=== PATIENT | male | born 1935 | race Caucasian/White ===

== ENCOUNTER 2020-02-04 16:00 | Inpatient (IN) | payer MEDICARE ==
[2020-02-05 06:16] LABS: ALT (SGPT) 8 U/L (8-55); AST (SGOT) 18 U/L (5-34); Albumin 3.7 g/dL (3.4-4.8); Alkaline Phosphatase 39 U/L (40-110); Anion Gap 17 mmol/L (10-20); BUN (Urea Nitrogen) 21 mg/dL (8.4-25.7); Bilirubin, Total 0.7 mg/dL (0.2-1.2); Calc. Creatinine Clearance 48 mL/min (70-130); Calcium 8.9 mg/dL (7.8-10.44); Carbon Dioxide 21 mmol/L (23-31); Chloride 104 mmol/L (98-107); Estimated GFR-MDRD 49; Globulin 2.7 g/dL (2.4-3.5); Glucose 115 mg/dL (83-110); Potassium 3.8 mmol/L (3.5-5.1); Protein, Total 6.4 g/dL (5.8-8.1); Sodium 138 mmol/L (136-145)
[2020-02-05 06:41] LABS: Hemoglobin 13.8 g/dL (14.0-18.0); Mean Corpuscular HGB CONC 32.5 g/dL (32.0-36.0); Mean Corpuscular Hemoglobin 31.1 pg (27.0-31.0); Mean Corpuscular Volume 95.6 fL (78.0-98.0); Mean Platelet Volume 6.6 fL (7.4-10.4); Platelet Count 194 thou/uL (130-400); RBC Distribution Width 11.9 % (11.5-14.5); Red Blood Cell (RBC) Count 4.44 mill/uL (4.70-6.10); White Blood Cell (WBC) Count 15.8 thou/uL (4.8-10.8)
[2020-02-05 06:42] LABS: Band 2 % (5-11); Lymphocytes 38 % (21-51); MDiff Complete? YES; Monocytes 5 % (0-10); Neutrophil 51 % (42-75); Platelet Morphology Comment Appears Adequate; Reactive Lymphocytes 3 % (0-10)
[2020-02-05] MEDS: Hydrochlorothiazide 25 MG TAB PO SCH (09:13)
[2020-02-05] MEDS: HYDROcodone/Acetaminophen 10/325 mg Tablet PO PRN ×3 (09:13→20:00)
[2020-02-05] MEDS: Potassium Chloride 10 MEQ TAB PO SCH (09:14)
[2020-02-05] MEDS: Lisinopril 20 MG TAB PO SCH (09:14)
[2020-02-05] MEDS: Amlodipine 5 MG TAB PO SCH (09:14)
[2020-02-05] MEDS: Aspirin 81 mg Enteric Coated Tablet PO SCH (09:14)
[2020-02-05] MEDS: Cholecalciferol 1,000 UNITS (25 MCG) TAB PO SCH (09:14)
[2020-02-05] MEDS: Cyanocobalamin (Vitamin B-12) 1,000 MCG TAB PO SCH (09:14)
[2020-02-05] MEDS: Clopidogrel Bisulfate 75 MG TAB PO SCH (09:14)
[2020-02-05] MEDS ORDERED: Bisacodyl 10 MG SUPP PR PRN (09:51)
--- NOTE | 2020-02-05 10:20 | HP ---
CHIEF COMPLAINT: Status post elective left total knee arthroplasty for physical therapy. BRIEF HISTORY: This is a very pleasant 84-year-old male, who apparently has had a progressive worsening pain in his left knee despite conservative measures and so underwent elective left total knee replacement. He was felt to be a good candidate for inpatient therapy before he goes home as he lives alone. The patient is up in his chair and denies any complaints other than constipation. He did have some hiccups last night, but it has since resolved. He states that his pain is at 7, but the medications are helping. Discussed with nursing and all questions answered. PAST MEDICAL HISTORY: Hypertension. PAST SURGICAL HISTORY: Left inguinal hernia repair. ALLERGIES: METRONIDAZOLE, CLONIDINE, AND MACROBID. FAMILY HISTORY: Noncontributory to current admission. PSYCHOSOCIAL HISTORY: Denies any tobacco or alcohol abuse. He is retired. He goes dancing every weekend. REVIEW OF SYSTEMS: GENERAL: Denies any fever, chills, fatigue or change in weight. CARDIOVASCULAR SYSTEM: Denies any chest pain, shortness of breath, palpitations, PND, orthopnea or pedal edema. RESPIRATORY SYSTEM: Denies any chronic cough, expectoration or pleuritic-type chest pain. GASTROINTESTINAL SYSTEM: Does complain of constipation. No nausea, vomiting, diarrhea, hematemesis, melena or hematochezia. GENITOURINARY SYSTEM: Denies any frequency, urgency, dysuria or hematuria. CENTRAL NERVOUS SYSTEM: Denies any focal numbness, weakness or fainting spells. HEENT: Denies any difficulty with speech, vision, hearing or swallowing. SKIN: Denies any rash. EXTREMITIES: Does notice left knee pain status post surgery. PHYSICAL EXAMINATION: GENERAL: This is a very pleasant 84-year-old male, who is up in his chair and denies any complaints. He is in no distress. He is alert, awake, and oriented x3. VITAL SIGNS: He is afebrile with a T-max of 99.9, pulse 98, respirations 20, oxygen saturation 94% on room air, and blood pressure 170/90. This was before his morning medications. HEENT: Normocephalic and atraumatic. Pupils are equally reacting to light and accommodation. No JVD, thyromegaly, cervical lymphadenopathy, or throat exudates. No carotid bruits. CARDIOVASCULAR SYSTEM: S1 and S2 plus. RESPIRATORY SYSTEM: Normal vesicular breath sounds. ABDOMEN: Soft and nontender. Bowel sounds heard in all quadrants. EXTREMITIES: Without cyanosis or clubbing. Trace edema, left leg. Left knee incision with dressing. Minimal warmth. No erythema. CENTRAL NERVOUS SYSTEM: Awake and responsive. Cranial nerves 2 through 12 intact. Grossly nonfocal. LABORATORY DATA: Laboratory values done this morning shows a white count of 15.8, it was 18,000 yesterday, H and H are 13.8 and 31.1. Sodium 138, potassium 3.8, BUN and creatinine of 21 and 1.4. Orthopedic did state that it is very common for leukocytosis postop, not a sign of infection and they just want us to monitor her. IMPRESSION: 1. Osteoarthritis, status post left total knee arthroplasty. 2. Hypertension. 3. Constipation. PLAN: 1. Continue current medications. 2. Low-sodium diet. 3. Monitor blood pressure and adjust medications as needed. 4. DVT prophylaxis per Orthopedics recommendations. 5. Orthopedic precautions and incision care. 6. Dulcolax suppository b.i.d. p.r.n. 7. Daily MiraLAX. 8. PT/OT eval and treat. 9. Monitor for any other signs or symptoms of infection. 10. Decubitus precautions and stress ulcer prophylaxis. 11. Discussed with the patient and nursing in detail and all questions answered. Job ID: [id number]
[2020-02-06] MEDS: Potassium Chloride 10 MEQ TAB PO SCH (08:46)
[2020-02-06] MEDS: Clopidogrel Bisulfate 75 MG TAB PO SCH (08:47)
[2020-02-06] MEDS: Cyanocobalamin (Vitamin B-12) 1,000 MCG TAB PO SCH (08:47)
[2020-02-06] MEDS: Aspirin 81 mg Enteric Coated Tablet PO SCH (08:47)
[2020-02-06] MEDS: Cholecalciferol 1,000 UNITS (25 MCG) TAB PO SCH (08:48)
[2020-02-06] MEDS: Amlodipine 5 MG TAB PO SCH (08:48)
[2020-02-06] MEDS: Lisinopril 20 MG TAB PO SCH (08:49)
[2020-02-06] MEDS: Hydrochlorothiazide 25 MG TAB PO SCH (08:49)
[2020-02-06] MEDS: Polyethylene Glycol 3350 17 GM Packet PO SCH (08:50)
[2020-02-06] MEDS: HYDROcodone/Acetaminophen 10/325 mg Tablet PO PRN ×3 (08:51→20:23)
--- NOTE | 2020-02-06 16:01 | PRG ---
DATE OF SERVICE: 02/06/2020 SUBJECTIVE: Mr. Vizcaino is up in his chair. He just finished his lunch. He apparently had a good bowel movement with a suppository yesterday. He states that it was black in color. He denies any history of stomach ulcers. He is not on any iron tablets. OBJECTIVE: VITAL SIGNS: He is afebrile, heart rate 96, respirations 18, oxygen saturation 95% on room air, blood pressure 151/83. CARDIOVASCULAR: S1-S2 plus. RESPIRATORY: Normal vesicular breath sounds. ABDOMEN: Soft and nontender. Bowel sounds heard in all quadrants. EXTREMITIES: Without cyanosis or clubbing. Knee incision with dressing. CENTRAL NERVOUS SYSTEM: Generalized weakness, otherwise nonfocal. IMPRESSION: 1. Osteoarthritis, status post left total knee replacement. 2. Hypertension. 3. Anemia, rule out gastrointestinal bleed. PLAN: 1. Check CBC in the morning. 2. Start stress ulcer prophylaxis with famotidine. 3. Check CBC in the morning. 4. Continue therapy. 5. Discussed with the patient in detail. All questions answered. 6. Bowel regimen. Job ID: [id number]
[2020-02-07] MEDS: HYDROcodone/Acetaminophen 10/325 mg Tablet PO PRN ×2 (08:07→13:41)
[2020-02-07] MEDS: Polyethylene Glycol 3350 17 GM Packet PO SCH (08:08)
[2020-02-07] MEDS: Aspirin 81 mg Enteric Coated Tablet PO SCH (08:08)
[2020-02-07] MEDS: Amlodipine 5 MG TAB PO SCH (08:09)
[2020-02-07] MEDS: Clopidogrel Bisulfate 75 MG TAB PO SCH (08:09)
[2020-02-07] MEDS: Lisinopril 20 MG TAB PO SCH (08:10)
[2020-02-07] MEDS: Potassium Chloride 10 MEQ TAB PO SCH (08:10)
[2020-02-07] MEDS: Cholecalciferol 1,000 UNITS (25 MCG) TAB PO SCH (08:10)
[2020-02-07] MEDS: Hydrochlorothiazide 25 MG TAB PO SCH (08:11)
[2020-02-07] MEDS: Cyanocobalamin (Vitamin B-12) 1,000 MCG TAB PO SCH (08:12)
--- NOTE | 2020-02-07 14:15 | PRG ---
DATE OF SERVICE: 02/07/2020 SUBJECTIVE: Mr. Vizcaino is doing well. He had another good bowel movement. No further hiccups. He is happy with his progress. Discussed with nursing. OBJECTIVE: VITAL SIGNS: He is afebrile, heart rate 90, respirations 18, oxygen saturation 94% on room air, and blood pressure 132/63. CARDIOVASCULAR SYSTEM: S1 and S2 plus. RESPIRATORY SYSTEM: Normal vesicular breath sounds. ABDOMEN: Soft, nontender. Bowel sounds heard in all quadrants. EXTREMITIES: Without cyanosis or clubbing. Left knee incision with dressing. Trace edema, otherwise nonfocal. IMPRESSION: 1. Osteoarthritis, status post left total knee replacement. 2. Constipation, which has resolved. 3. Hiccups, which have resolved. 4. Hypertension. 5. Anemia. PLAN: 1. Continue current medications. 2. Recheck CBC and BMP tomorrow. 3. Orthopedic precautions and incision care. 4. DVT prophylaxis with PlexiPulses. 5. Decubitus precautions. 6. Stress ulcer prophylaxis. 7. Continue therapy. Job ID: [id number]
[2020-02-08 05:43] LABS: Anion Gap 15 mmol/L (10-20); BUN (Urea Nitrogen) 39 mg/dL (8.4-25.7); Calc. Creatinine Clearance 42 mL/min (70-130); Calcium 8.9 mg/dL (7.8-10.44); Carbon Dioxide 23 mmol/L (23-31); Chloride 104 mmol/L (98-107); Estimated GFR-MDRD 41; Glucose 117 mg/dL (83-110); Hemoglobin 12.6 g/dL (14.0-18.0); Mean Corpuscular Hemoglobin 30.7 pg (27.0-31.0); Mean Corpuscular Volume 96.1 fL (78.0-98.0); Mean Platelet Volume 5.8 fL (7.4-10.4); Platelet Count 252 thou/uL (130-400); Potassium 4.5 mmol/L (3.5-5.1); RBC Distribution Width 11.7 % (11.5-14.5); Sodium 137 mmol/L (136-145); White Blood Cell (WBC) Count 14.3 thou/uL (4.8-10.8)
[2020-02-08 05:44] LABS: Band 10 % (5-11); Eosinophils 1 % (0-10); Large Platelets SLIGHT; Lymphocytes 39 % (21-51); MDiff Complete? YES; Metamyelocyte 2 % (0-0); Monocytes 2 % (0-10); Neutrophil 39 % (42-75); Platelet Morphology Comment Appears Adequate; RBC Morphology Normal; Reactive Lymphocytes 7 % (0-10)
[2020-02-08] MEDS: Aspirin 81 mg Enteric Coated Tablet PO SCH (08:58)
[2020-02-08] MEDS: Polyethylene Glycol 3350 17 GM Packet PO SCH (08:58)
[2020-02-08] MEDS: Amlodipine 5 MG TAB PO SCH (08:58)
[2020-02-08] MEDS: Lisinopril 20 MG TAB PO SCH (08:59)
[2020-02-08] MEDS: Cholecalciferol 1,000 UNITS (25 MCG) TAB PO SCH (08:59)
[2020-02-08] MEDS: Cyanocobalamin (Vitamin B-12) 1,000 MCG TAB PO SCH (08:59)
[2020-02-08] MEDS: Clopidogrel Bisulfate 75 MG TAB PO SCH (08:59)
[2020-02-08] MEDS: Potassium Chloride 10 MEQ TAB PO SCH (08:59)
[2020-02-08] MEDS: Hydrochlorothiazide 25 MG TAB PO SCH (09:00)
[2020-02-08] MEDS: HYDROcodone/Acetaminophen 10/325 mg Tablet PO PRN ×3 (09:00→20:37)
--- NOTE | 2020-02-08 13:32 | PRG ---
DATE OF SERVICE: 02/08/2020 SUBJECTIVE: Mr. Vizcaino is up in his chair. He is doing better. He denies any concerns except that he apparently is running out of his eyelid wash and needs some. He apparently has rosacea to his eyelids and he uses it every night. We will check with nursing to see if pharmacy can get some. OBJECTIVE: VITAL SIGNS: He is afebrile, heart rate 80, respirations 18, oxygen saturation 97% on room air, and blood pressure 132/63. CARDIOVASCULAR SYSTEM: S1 and S2 plus. RESPIRATORY SYSTEM: Normal vesicular breath sounds. ABDOMEN: Soft and nontender. Bowel sounds heard in all quadrants. EXTREMITIES: Left knee incision with dressing. Minimal effusion. No warmth or tenderness. IMPRESSION: 1. Osteoarthritis, status post left total knee replacement. 2. History of rosacea to eyelids, using eyewash wipes. 3. Hypertension. 4. Resolved constipation. PLAN: 1. Continue current medications. 2. Low-sodium diet. 3. Try to see if he can order his eyewash. 4. Physical therapy. 5. Orthopedic precautions and incision care. 6. DVT prophylaxis per Orthopedic recommendation. 7. Routine laboratory values. His white count is down to 14.3, H and H are 12.6 and 39.4, BUN and creatinine are 39 and 1.61. I did encourage him to drink plenty of fluids. We will hold his HCTZ. Job ID: [id number]
[2020-02-09] MEDS: Cholecalciferol 1,000 UNITS (25 MCG) TAB PO SCH (08:28)
[2020-02-09] MEDS: Lisinopril 20 MG TAB PO SCH (08:28)
[2020-02-09] MEDS: Polyethylene Glycol 3350 17 GM Packet PO SCH (08:28)
[2020-02-09] MEDS: Cyanocobalamin (Vitamin B-12) 1,000 MCG TAB PO SCH (08:29)
[2020-02-09] MEDS: Clopidogrel Bisulfate 75 MG TAB PO SCH (08:29)
[2020-02-09] MEDS: Amlodipine 5 MG TAB PO SCH (08:29)
[2020-02-09] MEDS: Aspirin 81 mg Enteric Coated Tablet PO SCH (08:29)
[2020-02-09] MEDS: HYDROcodone/Acetaminophen 10/325 mg Tablet PO PRN ×2 (12:41→21:38)
--- NOTE | 2020-02-09 13:36 | PRG ---
DATE OF SERVICE: 02/09/2020 SUBJECTIVE: Mr. Vizcaino is mobile on his wheelchair. Outside in the hallways in the room, he is able to ambulate with the help of his walker. He is happy with his progress. He is wondering when he might be discharged and I advised him that therapy has his case conference today. OBJECTIVE: VITAL SIGNS: He is afebrile, heart rate 82, respirations 18, oxygen saturation 95%, and blood pressure 139/70. CARDIOVASCULAR SYSTEM: S1 and S2 plus. RESPIRATORY SYSTEM: Normal vesicular breath sounds. ABDOMEN: Soft and nontender. Bowel sounds heard in all quadrants. EXTREMITIES: Without cyanosis or clubbing. Left knee incision with dressing. Mild edema to left leg. CENTRAL NERVOUS SYSTEM: deconditioning. IMPRESSION: 1. Osteoarthritis, status post left total knee replacement. 2. Hypertension. 3. Resolved constipation. 4. Worsening renal insufficiency, likely prerenal. He is off his and leukocytosis, likely reactive surgery. PLAN: 1. Continue current medications. 2. Hold HCTZ. 3. Recheck labs in the morning. 4. Continue therapy. 5. DVT prophylaxis per Orthopedic recommendations. 6. Decubitus precaution. 7. Incision care. Job ID: [id number]
[2020-02-10 06:21] LABS: Anion Gap 14 mmol/L (10-20); BUN (Urea Nitrogen) 45 mg/dL (8.4-25.7); Calc. Creatinine Clearance 42 mL/min (70-130); Calcium 8.6 mg/dL (7.8-10.44); Carbon Dioxide 23 mmol/L (23-31); Chloride 104 mmol/L (98-107); Estimated GFR-MDRD 41; Glucose 105 mg/dL (83-110); Potassium 4.3 mmol/L (3.5-5.1); Sodium 137 mmol/L (136-145)
[2020-02-10 06:29] LABS: Anisocytosis SLIGHT = 6-15 cells (100X) (0-5/hpf); Band 10 % (5-11); Eosinophils 6 % (0-10); Large Platelets SLIGHT; Lymphocytes 43 % (21-51); MDiff Complete? YES; Mean Corpuscular HGB CONC 32.5 g/dL (32.0-36.0); Mean Corpuscular Hemoglobin 31.3 pg (27.0-31.0); Mean Corpuscular Volume 96.3 fL (78.0-98.0); Mean Platelet Volume 5.6 fL (7.4-10.4); Monocytes 5 % (0-10); Neutrophil 30 % (42-75); Platelet Count 270 thou/uL (130-400); Platelet Morphology Comment Appears Adequate; RBC Distribution Width 11.6 % (11.5-14.5); Reactive Lymphocytes 6 % (0-10); Red Blood Cell (RBC) Count 3.84 mill/uL (4.70-6.10); White Blood Cell (WBC) Count 13.7 thou/uL (4.8-10.8)
[2020-02-10] MEDS: HYDROcodone/Acetaminophen 10/325 mg Tablet PO PRN ×2 (09:12→20:58)
[2020-02-10] MEDS: Polyethylene Glycol 3350 17 GM Packet PO SCH (09:12)
[2020-02-10] MEDS: Amlodipine 5 MG TAB PO SCH (09:13)
[2020-02-10] MEDS: Cholecalciferol 1,000 UNITS (25 MCG) TAB PO SCH (09:13)
[2020-02-10] MEDS: Aspirin 81 mg Enteric Coated Tablet PO SCH (09:13)
[2020-02-10] MEDS: Clopidogrel Bisulfate 75 MG TAB PO SCH (09:13)
[2020-02-10] MEDS: Lisinopril 20 MG TAB PO SCH (09:14)
[2020-02-10] MEDS: Cyanocobalamin (Vitamin B-12) 1,000 MCG TAB PO SCH (09:14)
--- NOTE | 2020-02-10 13:34 | PRG ---
DATE OF SERVICE: 02/10/2020 SUBJECTIVE: Mr. Vizcaino is doing well. Denies any complaints. He is noticing some ankle pain and he normally uses a topical pain relieving gel, which he would like to use. He is improving with therapy and reviewed their notes. Anticipated discharge date this Saturday or Saturday. OBJECTIVE: VITAL SIGNS: He is afebrile, heart rate 88, respirations 20, oxygen saturation 95% on room air, blood pressure 122/67. CARDIOVASCULAR: S1 and S2 plus. RESPIRATORY: Normal vesicular breath sounds. ABDOMEN: Soft, nontender. Bowel sounds heard in all quadrants. EXTREMITIES: Without cyanosis or clubbing. Left knee incision with dressing. Trace edema. IMPRESSION: 1. Osteoarthritis, status post left total knee replacement. 2. Hypertension. 3. Resolved constipation. 4. Rosacea blepharitis. PLAN: 1. Continue current medications. 2. Low-sodium diet. 3. Orthopedic precautions and incision care. 4. DVT prophylaxis per Orthopedic recommendations. 5. Eyelid care. 6. Therapy. 7. Discharge planning. Job ID: [id number]
[2020-02-11] MEDS: Aspirin 81 mg Enteric Coated Tablet PO SCH (08:54)
[2020-02-11] MEDS: Cholecalciferol 1,000 UNITS (25 MCG) TAB PO SCH (08:55)
[2020-02-11] MEDS: Cyanocobalamin (Vitamin B-12) 1,000 MCG TAB PO SCH (08:55)
[2020-02-11] MEDS: HYDROcodone/Acetaminophen 10/325 mg Tablet PO PRN ×2 (08:55→20:33)
[2020-02-11] MEDS: Amlodipine 5 MG TAB PO SCH (08:56)
[2020-02-11] MEDS: Clopidogrel Bisulfate 75 MG TAB PO SCH (08:56)
[2020-02-11] MEDS: Lisinopril 20 MG TAB PO SCH (08:56)
[2020-02-11] MEDS: Polyethylene Glycol 3350 17 GM Packet PO SCH (08:57)
--- NOTE | 2020-02-11 13:42 | PRG ---
DATE OF SERVICE: SUBJECTIVE: Mr. Vizcaino is doing well. He is up in his chair. He is happy with his progress. Informed him that he should be ready to go home early next week. The patient states that he does not want home health. He wants to do outpatient therapy at the [facility] in [place]. Informed therapy and therapy are fine with that as well. OBJECTIVE: VITAL SIGNS: He is afebrile, heart rate 84, respirations 18, oxygen saturation 96% on room air, blood pressure 146/71. CARDIOVASCULAR: S1 and S2 plus. RESPIRATORY: Normal vesicular breath sounds. ABDOMEN: Soft and nontender. Bowel sounds heard in all quadrants. EXTREMITIES: Without cyanosis, clubbing. Left knee incision with dressing. No erythema. CENTRAL NERVOUS SYSTEM: Grossly nonfocal. IMPRESSION: 1. Osteoarthritis, status post left total knee replacement. 2. Hypertension. 3. Resolved constipation. 4. Rosacea blepharitis. PLAN: 1. Continue current medications. 2. Heart healthy diet. 3. Orthopedic precautions and incision care. 4. DVT prophylaxis per Orthopedic recommendations. 5. Decubitus precautions. 6. Stress ulcer prophylaxis. 7. Routine laboratory values. 8. Discharge planning. 9. Continue therapy. Job ID: [id number]
[2020-02-12] MEDS: Polyethylene Glycol 3350 17 GM Packet PO SCH (08:50)
[2020-02-12] MEDS: Cyanocobalamin (Vitamin B-12) 1,000 MCG TAB PO SCH (08:51)
[2020-02-12] MEDS: Clopidogrel Bisulfate 75 MG TAB PO SCH (08:51)
[2020-02-12] MEDS: Cholecalciferol 1,000 UNITS (25 MCG) TAB PO SCH (08:51)
[2020-02-12] MEDS: Aspirin 81 mg Enteric Coated Tablet PO SCH (08:51)
[2020-02-12] MEDS: Amlodipine 5 MG TAB PO SCH (08:51)
[2020-02-12] MEDS: Lisinopril 20 MG TAB PO SCH (08:51)
[2020-02-12] MEDS ORDERED: HYDROcodone/Acetaminophen 5/325 mg Tablet PO PRN (09:13)
[2020-02-12] MEDS ORDERED: traMADol HCl 50 MG TAB PO PRN (09:13)
--- NOTE | 2020-02-12 09:46 | PRG ---
DATE OF SERVICE: 02/12/2020 SUBJECTIVE: Mr. Vizcaino is up in his chair. He is happy with his progress. He states that he continues to have some issues with constipation. He is unable to go down on the pain medicines to something less strong and keep Morovis 5/325 for breakthrough pain and see if that helps. OBJECTIVE: VITAL SIGNS: He is afebrile, heart rate 78, respirations 20, oxygen saturation 96% on room air, and blood pressure 149/70. CARDIOVASCULAR SYSTEM: S1 and S2 plus. RESPIRATORY: Normal vesicular breath sounds. ABDOMEN: Soft and nontender. Bowel sounds heard in all quadrants. EXTREMITIES: Without cyanosis or clubbing. Left knee incision with dressing. CENTRAL NERVOUS SYSTEM: Grossly nonfocal. IMPRESSION: 1. Osteoarthritis. 2. Hypertension. 3. Fluctuating constipation. 4. Rosacea blepharitis. 5. Improving deconditioning. PLAN: 1. Continue current medications, but change Morovis to 5/325 one tablet p.o. q.6 p.r.n. breakthrough pain and add tramadol 50 mg p.o. q.6 p.r.n. 2. Heart healthy high-fiber diet. 3. Continue bowel regimen with MiraLAX. 4. Orthopedic precautions and incision care. 5. Continue therapy. 6. Anticipate discharge on Saturday. 7. Dr. Murray on-call this weekend. Job ID: [id number]
[2020-02-13 05:06] LABS: Hemoglobin 12.2 g/dL (14.0-18.0); Mean Corpuscular HGB CONC 32.7 g/dL (32.0-36.0); Mean Corpuscular Hemoglobin 31.5 pg (27.0-31.0); Mean Corpuscular Volume 96.3 fL (78.0-98.0); Platelet Count 330 thou/uL (130-400); RBC Distribution Width 11.6 % (11.5-14.5); Red Blood Cell (RBC) Count 3.89 mill/uL (4.70-6.10); White Blood Cell (WBC) Count 12.3 thou/uL (4.8-10.8)
[2020-02-13 05:07] LABS: #Basophils 0.1 thou/uL (0.0-0.2); #Eosinphils 0.3 thou/uL (0.0-0.7); #Lymphocytes 5.3 thou/uL (1.20-3.40); #Neutrophils 5.7 thou/uL (1.40-6.50); %Basophils 1.2 % (0.0-1.0); %Eosinophils 2.2 % (0.0-10.0); %Lymphocytes 42.9 % (21.0-51.0); %Monocytes 7.9 % (0.0-10.0); %Neutrophils 45.9 % (42.0-75.0); Manual Diff?? NO; Mean Platelet Volume 5.1 fL (7.4-10.4)
[2020-02-13 05:27] LABS: ALT (SGPT) 20 U/L (8-55); AST (SGOT) 18 U/L (5-34); Albumin 3.5 g/dL (3.4-4.8); Alkaline Phosphatase 49 U/L (40-110); Anion Gap 13 mmol/L (10-20); BUN (Urea Nitrogen) 35 mg/dL (8.4-25.7); Bilirubin, Total 0.6 mg/dL (0.2-1.2); Calc. Creatinine Clearance 45 mL/min (70-130); Calcium 8.9 mg/dL (7.8-10.44); Carbon Dioxide 22 mmol/L (23-31); Chloride 106 mmol/L (98-107); Estimated GFR-MDRD 45; Globulin 2.6 g/dL (2.4-3.5); Glucose 108 mg/dL (83-110); Potassium 4.4 mmol/L (3.5-5.1); Protein, Total 6.1 g/dL (5.8-8.1); Sodium 137 mmol/L (136-145)
[2020-02-13] MEDS: Aspirin 81 mg Enteric Coated Tablet PO SCH (08:33)
[2020-02-13] MEDS: Polyethylene Glycol 3350 17 GM Packet PO SCH (08:33)
[2020-02-13] MEDS: Cyanocobalamin (Vitamin B-12) 1,000 MCG TAB PO SCH (08:33)
[2020-02-13] MEDS: Lisinopril 20 MG TAB PO SCH (08:34)
[2020-02-13] MEDS: Cholecalciferol 1,000 UNITS (25 MCG) TAB PO SCH (08:34)
[2020-02-13] MEDS: Amlodipine 5 MG TAB PO SCH (08:34)
[2020-02-13] MEDS: Clopidogrel Bisulfate 75 MG TAB PO SCH (08:34)
--- NOTE | 2020-02-13 09:10 | PRG ---
DATE OF SERVICE: 02/13/2020 SUBJECTIVE: The patient is a well-developed, well-nourished 84-year-old white male, who had a left total knee replacement done by Dr. Leonardo. Postoperatively, he was having difficulty getting stronger and was transferred to [facility] swing bed for inpatient rehab and physical therapy. The patient states he is doing very well and getting much stronger. I did get a call late last night. The patient states his left ankle below that left knee has been aching a little bit and it is swollen. We did do blood work this morning, which is actually improved. His white count is down to 12.3, and his creatinine is down to 1.49. We also did a uric acid, which was noted to be 7. His H and H are 12.2 and 37.3. PHYSICAL EXAMINATION: GENERAL: This is a well-developed, well-nourished, thin 84-year-old white male, in no apparent distress at this time. HEENT: Reveals normocephalic and nontraumatic cranium. Pupils are equally round and reactive. Extraocular movements are intact. Nose and throat are slightly dry. NECK: Supple without masses, nodes, or bruits. CHEST: Clear to auscultation. No rales, rhonchi, or wheezes are heard. HEART: Reveals a regular rate and rhythm without murmurs, gallops, or rubs. ABDOMEN: Soft, nontender without organomegaly. : Deferred. EXTREMITIES: Reveal no clubbing, cyanosis, or edema. The patient's left ankle reveals some minimal swelling and minimal achiness, but he does have a black line on the right side of his ankle and a black line on the left side of his ankle compatible with knee surgery with blood traversing the muscles down to the tendons down to the ankle. I explained to the patient and he understood perfectly. IMPRESSION: 1. Osteoarthritis. 2. Hypertension. 3. Fluctuating constipation. 4. Rosacea blepharitis. 5. Status post total left knee, doing well. 6. Left ankle with some postop swelling and some bruising left over from his total knee. 7. Uric acid 7.0. 8. WBC 12.3, which is improved. 9. Creatinine 1.49, which is improved. 10. Chronic kidney disease, stage 3. 11. Generalized deconditioning. PLAN: 1. Continue present medications and will add Tylenol 500 mg to his tramadol 50 q.6h p.r.n. when he has breakthrough pain. 2. Continue MiraLAX daily. 3. Orthopedic precautions. 4. Wound care to the patient's incision site. 5. Continue healthy heart high-fiber diet. 6. Stress ulcer prophylaxis. 7. Decubitus precautions. 8. Out of bed, sitting in a chair this weekend. 9. Plan on discharge on Saturday. Job ID: [id number]
[2020-02-13] MEDS: Acetaminophen 500 MG TAB PO PRN (20:35)
[2020-02-14 04:04] VITALS: BMI 25.7
[2020-02-14] MEDS: Amlodipine 5 MG TAB PO SCH (08:49)
[2020-02-14] MEDS: Cyanocobalamin (Vitamin B-12) 1,000 MCG TAB PO SCH (08:49)
[2020-02-14] MEDS: Cholecalciferol 1,000 UNITS (25 MCG) TAB PO SCH (08:49)
[2020-02-14] MEDS: Clopidogrel Bisulfate 75 MG TAB PO SCH (08:49)
[2020-02-14] MEDS: Aspirin 81 mg Enteric Coated Tablet PO SCH (08:49)
[2020-02-14] MEDS: Lisinopril 20 MG TAB PO SCH (08:50)
[2020-02-14] MEDS: Polyethylene Glycol 3350 17 GM Packet PO SCH (08:51)
--- NOTE | 2020-02-14 09:12 | PRG ---
DATE OF SERVICE: 02/14/2020 SUBJECTIVE: Mr. Vizcaino is an 84-year-old white male with a total left knee done by Dr. Leonardo. Postoperatively, he had difficulty getting stronger, and was transferred to [facility] for swing bed, inpatient rehab, and physical therapy. The patient states that he is complaining of lots and lots of drainage, which has been a long-term problem. He has seen multiple ENT doctors and they have not been able to help him. He is not on any antihistamines at this time, so we will place him on some Melissa 180 mg once a day starting tomorrow. If that does not work when he is discharged, then he needs to go to see an ENT again. OBJECTIVE: VITAL SIGNS: Today reveal blood pressure 166/89, but he is somewhat aggravated this morning with his nasal drainage, last night was 147/70. Pulse 81 to 86, respirations 18 to 23, O2 saturations 96% to 97% on room air, T-max 98.3. GENERAL: This is a well-developed, thin white male, in no apparent distress at this time. He does have a complaint of nasal drainage. HEENT: Reveals normocephalic and nontraumatic cranium. Pupils are equal, round, and reactive. Extraocular movements are intact. Nose and throat reveals the nose is draining, but the throat is dry. NECK: Supple without masses, nodes, or bruits. CHEST: Clear to auscultation. No rales, rhonchi, wheezes, or cough is noted. HEART: Reveals a regular rate and rhythm without murmurs, gallops, or rubs. ABDOMEN: Soft, nontender without organomegaly. No rebound or guarding is noted. : Deferred. EXTREMITIES: Reveal no clubbing, cyanosis, or edema. The patient continues to have some swelling on his left knee and some bruising around the sole of his foot, otherwise normal. IMPRESSION: 1. Allergic rhinitis. 2. Osteoarthritis. 3. Hypertension. 4. Fluctuating constipation. 5. Rosacea blepharitis. 6. Status post total left knee done by Dr. Leonardo. 7. Left ankle with postop swelling, some bruising over that total knee. 8. Uric acid 7.0. 9. White count improved down to 12.3. 10. Creatinine improved down to 1.49. 11. Chronic kidney disease, stage 3. 12. Generalized deconditioning. PLAN: 1. We will add Melissa 180 mg once a day schedule at this time. 2. Continue present medications. 3. Continue MiraLAX daily. 4. Orthopedic precautions. 5. Wound care to the patient's incision site. 6. Continue healthy heart, high-fiber diet. 7. Stress ulcer prophylaxis. 8. Decubitus precautions. 9. Out of bed as much as possible over the weekend. 10. Discharge on Saturday. 11. Dr. Aruna gupta [facility]. Job ID: [id number]
[2020-02-14] MEDS ORDERED: Loratadine 10 MG TAB PO SCH (09:45)
[2020-02-14] MEDS: Loratadine 10 MG TAB PO SCH (09:58)
[2020-02-14] MEDS: Acetaminophen 500 MG TAB PO PRN (18:28)
[2020-02-15] MEDS: Polyethylene Glycol 3350 17 GM Packet PO SCH (08:48)
[2020-02-15] MEDS: Amlodipine 5 MG TAB PO SCH (08:49)
[2020-02-15] MEDS: Cholecalciferol 1,000 UNITS (25 MCG) TAB PO SCH (08:49)
[2020-02-15] MEDS: Lisinopril 20 MG TAB PO SCH (08:50)
[2020-02-15] MEDS: Cyanocobalamin (Vitamin B-12) 1,000 MCG TAB PO SCH (08:50)
[2020-02-15] MEDS: Aspirin 81 mg Enteric Coated Tablet PO SCH (08:50)
[2020-02-15] MEDS: Clopidogrel Bisulfate 75 MG TAB PO SCH (08:50)
[2020-02-15] MEDS: Loratadine 10 MG TAB PO SCH (08:51)
[2020-02-15] MEDS: Acetaminophen 500 MG TAB PO PRN ×2 (08:56→21:15)
--- NOTE | 2020-02-15 14:04 | PRG ---
DATE OF SERVICE: 02/15/2020 SUBJECTIVE: Mr. Vizcaino is up in his chair. He is doing well. He is anticipated to discharge tomorrow. He states that he does have the amlodipine and Plavix at home. He has been only taking his Tylenol for the last couple of days and he does not want anything for pain. He apparently had an episode of epistaxis over the weekend and this has happened to him in the past and he is going to follow up with him as outpatient. He states that . OBJECTIVE: VITAL SIGNS: He is afebrile. Heart rate 80, respirations 18, oxygen saturation 97% on room air, blood pressure 146/70. CARDIOVASCULAR: S1 and S2 plus. RESPIRATORY: Normal vesicular breath sounds. ABDOMEN: Soft, nontender. Bowel sounds heard in all quadrants. EXTREMITIES: Without cyanosis or clubbing. Left knee incision with dressing. IMPRESSION: 1. Osteoarthritis, status post left total knee replacement. 2. Hypertension. 3. Resolved constipation. 4. Possible allergic rhinitis and epistaxis. 5. Rosacea blepharitis. PLAN: 1. Continue current medications. 2. Therapy. 3. Discharge planning. 4. Outpatient therapy. He states he is going to get order from Dr. Leonardo. 5. Anticipate discharging him tomorrow. 6. Discussed with the patient and nursing in detail. All questions were answered. Job ID: [id number]
[2020-02-16] MEDS: Cholecalciferol 1,000 UNITS (25 MCG) TAB PO SCH (08:09)
[2020-02-16] MEDS: Lisinopril 20 MG TAB PO SCH (08:09)
[2020-02-16] MEDS: Polyethylene Glycol 3350 17 GM Packet PO SCH (08:09)
[2020-02-16] MEDS: Amlodipine 5 MG TAB PO SCH (08:09)
[2020-02-16] MEDS: Aspirin 81 mg Enteric Coated Tablet PO SCH (08:10)
[2020-02-16] MEDS: Clopidogrel Bisulfate 75 MG TAB PO SCH (08:10)
[2020-02-16] MEDS: Cyanocobalamin (Vitamin B-12) 1,000 MCG TAB PO SCH (08:10)
[2020-02-16] MEDS: Loratadine 10 MG TAB PO SCH (08:13)
[2020-02-16] MEDS: Acetaminophen 500 MG TAB PO PRN (08:13)
[2020-02-16 08:21] VITALS: BP 140/73; TEMP 98.5
--- NOTE | 2020-02-17 05:47 | DIS ---
DATE OF ADMISSION: 02/04/2020 DATE OF DISCHARGE: 02/16/2020 PRINCIPAL DIAGNOSIS: Osteoarthritis, status post left total knee replacement. SECONDARY DIAGNOSES: 1. Hypertension. 2. Resolved constipation. 3. Rosacea blepharitis. 4. Episodes of epistaxis. COMPLICATIONS: None. ADVERSE REACTIONS: None. PROCEDURES: None. CONSULTATIONS: None. HOSPITAL COURSE: The patient was admitted as a transfer from acute care hospital after undergoing left total knee replacement. He underwent therapy with physical and occupational therapy and has improved dramatically and was deemed stable for discharge. He did have 1 episode of epistaxis, which resolved spontaneously. The patient states that usually loratadine helps. I also advised him to use saline nasal spray. He uses [employer] plus eyelid wipes for his rosacea blepharitis. He did have constipation, but he responded to Dulcolax suppository. He has been on MiraLAX daily. He has been weaned off his pain medications and over the last 3 days he has been only on Tylenol. He was deemed stable for discharge to home. Home health apparently is being arranged by his orthopedic surgeon and he will be transitioned to outpatient therapy. The patient was advised to follow up with his PCP and his orthopedic surgeon per their recommendation. PHYSICAL EXAMINATION: VITAL SIGNS: On the day of discharge, he is afebrile, heart rate 93, respirations 20, oxygen saturation 93% on room air, blood pressure . CARDIOVASCULAR: S1-S2 plus. RESPIRATORY: Normal vesicular breath sounds. ABDOMEN: Soft, nontender. Bowel sounds heard in all quadrants. EXTREMITIES: Without cyanosis or clubbing. RESPIRATORY: System is low breath sounds abdomen soft nontender. Bowel sounds heard in all quadrants extremities without cyanosis, clubbing. Left knee incision has healthy dressing. CENTRAL NERVOUS SYSTEM: Awake and oriented x3. Cranial nerves 2 through 12 intact. Grossly nonfocal. DISCHARGE MEDICATIONS: 1. Tylenol 500 q.6h p.r.n. 2. He is on amlodipine/benazepril 11/17. 3. Lotrel 1 tab daily. 4. Plavix 75 mg daily. 5. Ecotrin 81 mg daily. 6. The patient states he is not going to take due to bleeding epistaxis. He is aware of the risks. 7. Vitamin D3 1000 international units daily. 8. Vitamin B12 1000 mcg daily. 9. Loratadine 10 mg daily. 10. MiraLAX 17 g in 8 ounces of water daily as needed as needed. 11. He does not need any prescriptions. Total time spent on this discharge 25 minutes. Job ID: [id number]
[2020-02-17] MEDS ORDERED: Loratadine 10 MG TAB PO SCH (09:00)
== END 2020-02-16 13:55 | disposition home health service (06) | DRG 561 ==
LOC: NAV ACUTE 16:00
PROVIDERS: ADMIT Internal Medicine; ATTEND Internal Medicine
DX: Z47.1 Aftercare following joint replacement surgery (principal); K59.00 Constipation, unspecified; H01.009 Unspecified blepharitis unspecified eye, unspecified eyelid; R04.0 Epistaxis; R06.6 Hiccough; N18.3 Chronic kidney disease, stage 3 (moderate); I12.9 Hypertensive chronic kidney disease with stage 1 through stage 4 chronic kidney disease, or unspecified chronic kidney disease; R53.81 Other malaise; D63.1 Anemia in chronic kidney disease
CPT/HCPCS: 80048; 80053; 84550; 85025; 85652; 87086